=== PATIENT | female | born 1990 | race Caucasian/White ===

== ENCOUNTER → 2025-01-22 10:47 | Outpatient (REF) | payer OTHER, SELFPAY | LOC: PNTC 10:47 | PROVIDERS: ATTENDING PHYSICIAN Obstetrics & Gynecology | DX: Z36.2 Encounter for other antenatal screening follow-up (principal); O09.33 Supervision of pregnancy with insufficient antenatal care, third trimester | CPT/HCPCS: 76816 ==

== ENCOUNTER 2025-02-24 17:51 | Inpatient (IN) | payer OTHER, SELFPAY ==
[2025-02-24 18:06] VITALS: BP 141/96; BMI 31.9
[2025-02-24] MEDS: LR 1000 IV (18:14)
[2025-02-24 18:25] LABS: Hematocrit 32.5 % (37.0-47.0); Hemoglobin 11.0 g/dL (12.0-16.0); Mean Corp Hgb Conc. 33.8 g/dL (33.0-37.0); Mean Corpuscular Volume 84.9 fL (81.0-99.0); Nucleated Red Blood Cells % 0 %; Platelet Count 195 10^3/uL (130-400); Red Cell Dist. Width 15.3 % (11.5-14.5)
[2025-02-24 18:42] LABS: ALT (SGPT) 11 U/L (0-35); AST (SGOT) 23 U/L (14-36); Albumin 3.8 g/dl (3.5-5.0); Alkaline Phosphatase 178 U/L (38-126); Blood Urea Nitrogen 10 mg/dl (7-17); Calcium 9.4 mg/dl (8.4-10.2); Carbon Dioxide 18 mmol/L (22-30); Chloride 106 mmol/L (98-107); Estimated Creatinine Clearance 116 ml/min; Glucose 92 mg/dl (70-99); Potassium 4.3 mmol/L (3.5-5.1); Sodium 132 mmol/L (135-145); Total Protein 6.7 g/dl (6.3-8.2); eGFR > 60.00
[2025-02-24] MEDS: FENTANYL/BUPIVACAINE 100 EPIDURAL (19:15)
[2025-02-24] MEDS: SUBLIMAZE 100 MCG EPIDURAL (19:16)
[2025-02-24] MEDS: ANCEF 10 IV (21:45)
[2025-02-25] MEDS: MOTRIN 600 MG PO ×3 (00:32→15:18)
[2025-02-25 05:10] LABS: Hematocrit 30.8 % (37.0-47.0); Hemoglobin 10.1 g/dL (12.0-16.0)
[2025-02-25] MEDS: COLACE 100 MG PO ×2 (08:35→20:54)
[2025-02-25] MEDS: PRENATAL PLUS 1 TABLET PO (08:35)
[2025-02-25] MEDS: FEOSOL 325 MG PO (08:35)
[2025-02-26] MEDS: MOTRIN 600 MG PO ×2 (03:57→10:44)
[2025-02-26] MEDS: COLACE 100 MG PO (08:21)
[2025-02-26] MEDS: FEOSOL 325 MG PO (08:21)
[2025-02-26] MEDS: PRENATAL PLUS 1 TABLET PO (08:21)
[2025-02-26 11:23] LABS: Syphilis/T. pallidum Ab Reflex Negative (Negative)
== END 2025-02-26 11:41 | disposition home or self-care (01) | DRG 807 ==
LOC: LDRP 17:51
PROVIDERS: ADMITTING PHYSICIAN Obstetrics & Gynecology
PROC: 0KQM0ZZ Repair Perineum Muscle, Open Approach (ICD-10-PCS; 2025-02-24)
PROC: 10E0XZZ Delivery of Products of Conception, External Approach (ICD-10-PCS; 2025-02-24)
PROC: 10D17Z9 Manual Extraction of Products of Conception, Retained, Via Natural or Artificial Opening (ICD-10-PCS; 2025-02-24)
PROC: 10907ZC Drainage of Amniotic Fluid, Therapeutic from Products of Conception, Via Natural or Artificial Opening (ICD-10-PCS; 2025-02-24)
DX: O77.0 Labor and delivery complicated by meconium in amniotic fluid (principal); Z37.0 Single live birth; O70.1 Second degree perineal laceration during delivery; O73.1 Retained portions of placenta and membranes, without hemorrhage; O69.3XX0 Labor and delivery complicated by short cord, not applicable or unspecified; Z3A.39 39 weeks gestation of pregnancy
CPT/HCPCS: 80053; 82570; 84156; 85014; 85018; 85025; 86780; 86850; 86900; 86901; 87491; 87591; 88307